=== PATIENT | female | born 1995 | race Caucasian/White ===

== ENCOUNTER 2017-09-28 21:26 | Outpatient (CLI) | payer OTHER | END 2017-09-28 22:45 | disposition home or self-care (01) | LOC: M LDO 21:26 | DX: O36.8130 Decreased fetal movements, third trimester, not applicable or unspecified (principal); Z3A.39 39 weeks gestation of pregnancy | CPT/HCPCS: 59025 ==

== ENCOUNTER 2017-10-01 09:12 | Outpatient (CLI) | payer OTHER | END 2017-10-01 10:20 | disposition home or self-care (01) | LOC: M LDO 09:12 | DX: O47.1 False labor at or after 37 completed weeks of gestation (principal); Z3A.39 39 weeks gestation of pregnancy | CPT/HCPCS: 59025 ==

== ENCOUNTER 2017-10-02 04:35 | Inpatient (IN) | payer OTHER ==
[2017-10-02] MEDS: LACTATED RINGER'S 1000 ML IV (05:38)
[2017-10-02 06:15] LABS: HEMATOCRIT 32.9 % (36.0-47.0); HEMOGLOBIN 11.1 g/dl (12.0-16.0); MEAN CORPUSCULAR HEMOGLOBIN 28.8 pg (27.0-33.0); MEAN CORPUSCULAR HGB CONC 33.7 g/dl (32.0-36.5); MEAN CORPUSCULAR VOLUME 85.2 fl (80.0-96.0); PLATELET COUNT, AUTOMATED 263 10^3/uL (150-450); RED BLOOD COUNT 3.86 10^6/uL (4.00-5.40); RED CELL DISTRIBUTION WIDTH 13.4 % (11.5-14.5); WHITE BLOOD COUNT 19.2 10^3/uL (4.0-10.0)
[2017-10-02] MEDS ORDERED: FENTANYL 2MCG/ML ROPIVACAINE 0.2% IN 0.9% NACL 200ML IVBAG As Ordered (06:51)
[2017-10-02] MEDS: LR 1,000 ML IV (07:10)
[2017-10-02] MEDS ORDERED: ePHEDrine SULFATE 25 MG/5 ML(5MG/ML) SYRINGE IV (08:30)
[2017-10-02] MEDS ORDERED: EPIDURAL COMMENT XX (08:30)
[2017-10-02] MEDS ORDERED: NALOXONE INJ 0.4 MG/1 ML VIAL (J2310) IV (08:30)
[2017-10-02] MEDS ORDERED: ONDANSETRON 4MG/2ML VIAL (J2405) IV ×2 (08:30→12:00)
[2017-10-02] MEDS ORDERED: diphenhydrAMINE INJ 50MG/ML VIAL (J1200) IV (08:30)
[2017-10-02] MEDS ORDERED: LACTATED RINGER'S 1000 ML IV (08:30)
[2017-10-02] MEDS ORDERED: FENTANYL/ROPIVACAINE/NACL BAG 200 ML EPIDURAL (08:30)
[2017-10-02] MEDS ORDERED: REFRIGERATOR IV KEYS XX (08:30)
[2017-10-02] MEDS ORDERED: EPIDURAL/PCA KEYS XX (08:30)
[2017-10-02] MEDS ORDERED: OXYTOCIN DRIP 30 UNITS in APPROPRIATE DILUENT 1 EA IV (09:30)
[2017-10-02] MEDS: OXYTOCIN DRIP 30 UNITS in APPROPRIATE DILUENT 1 EA IV (11:56)
[2017-10-02] MEDS ORDERED: DOCUSATE SODIUM 100 MG CAP PO (12:00)
[2017-10-02] MEDS ORDERED: METHYLERGONOVINE MALEATE 0.2 MG TAB PO (12:00)
[2017-10-02] MEDS ORDERED: DIBUCAINE 1% OINTMENT 30GM TOP (12:00)
[2017-10-02] MEDS ORDERED: METOCLOPRAMIDE INJ 10MG/2ML VIAL (J2765) IV (12:00)
[2017-10-02] MEDS ORDERED: PROMETHAZINE 25 MG TAB PO (12:00)
[2017-10-02] MEDS: PRENATAL VITAMINS CHEWABLE TABLET PO (14:00)
[2017-10-02] MEDS: MEASLES,MUMPS,RUBELLA VACCINE INJ (MMR-II) (90707) SC (15:23)
[2017-10-02] MEDS: IBUPROFEN 600 MG TAB PO (17:38)
[2017-10-02] MEDS: ACETAMINOPHEN TAB 650MG DOSE (2X325MG) PO (22:02)
[2017-10-03] MEDS: PRENATAL VITAMINS CHEWABLE TABLET PO (08:10)
[2017-10-03] MEDS: medroxyPROGESTERone ACET IM SUSP 150 MG/ML VIAL (J1050) IM (21:36)
== END 2017-10-03 22:11 | disposition home or self-care (01) | DRG 775 ==
LOC: M LDO 04:35 → M LDI 05:41 → M OBS 15:14
PROVIDERS: Obstetrics & Gynecology
PROC: 10E0XZZ Delivery of Products of Conception, External Approach (ICD-10-PCS; principal; 2017-10-02)
PROC: 10907ZC Drainage of Amniotic Fluid, Therapeutic from Products of Conception, Via Natural or Artificial Opening (ICD-10-PCS; 2017-10-02)
DX: O80 Encounter for full-term uncomplicated delivery (principal); Z3A.39 39 weeks gestation of pregnancy; Z37.0 Single live birth

== ENCOUNTER → 2018-12-10 | Outpatient (REF) | payer OTHER ==
[~2018-12-10] MED LIST: COLA100C5 PO; IBUP-1022 PO; TYLE325T5 PO
== END ==
LOC: M SFHCLERA 14:33
PROVIDERS: ATTEND Physician Assistant
DX: R50.9 Fever, unspecified (principal)

== ENCOUNTER 2019-08-18 19:18 | Inpatient (IN) | payer OTHER ==
[~2019-08-18] VITALS: Ht 165.1 cm; Wt 74.9 kg
[2019-08-18] MEDS ORDERED: BUTACAP78 PO (19:24)
[2019-08-18] MEDS ORDERED: PHEN-500 PO (19:24)
[2019-08-18] MEDS ORDERED: MACR100C43 PO (19:24)
[2019-08-18 20:15] LABS: BASO % 0.2 % (0.0-1.0); HEMATOCRIT 38.6 % (36.0-47.0); HEMOGLOBIN 12.9 g/dl (12.0-15.5); LYMPH # 0.6 10^3/uL (1.5-5.0); LYMPH % 4.3 % (24.0-44.0); MEAN CORPUSCULAR HEMOGLOBIN 31.2 pg (27.0-33.0); MEAN CORPUSCULAR HGB CONC 33.4 g/dl (32.0-36.5); MEAN CORPUSCULAR VOLUME 93.2 fl (80.0-96.0); MONO # 1.1 10^3/uL (0.0-0.8); MONO % 8.6 % (0.0-5.0); NEUTROPHILS # 11.1 10^3/uL (1.5-8.5); NEUTROPHILS % 86.4 % (36.0-66.0); PLATELET COUNT, AUTOMATED 214 10^3/uL (150-450); RED BLOOD COUNT 4.14 10^6/uL (4.00-5.40); WHITE BLOOD COUNT 12.8 10^3/uL (4.0-10.0)
[2019-08-18] MEDS ORDERED: IBUPROFEN 600 MG TAB PO ONE (20:15)
[2019-08-18] MEDS ORDERED: NS 1,000 ML IV ONE (20:15)
[2019-08-18 20:30] LABS: ALBUMIN 3.6 GM/DL (3.2-5.2); ALT/SGPT 13 U/L (12-78); BILIRUBIN,DIRECT 0.2 MG/DL (0.0-0.2); BILIRUBIN,TOTAL 0.5 MG/DL (0.2-1.0); BLOOD UREA NITROGEN 6 MG/DL (7-18); CALCIUM LEVEL 8.9 MG/DL (8.5-10.1); CARBON DIOXIDE LEVEL 23 MEQ/L (21-32); CHLORIDE LEVEL 104 MEQ/L (98-107); CREATININE FOR GFR 0.77 MG/DL (0.55-1.30); GLOMERULAR FILTRATION RATE > 60.0 (>60); GLUCOSE, FASTING 111 MG/DL (70-100); LIPASE 65 U/L (73-393); POTASSIUM SERUM 3.3 MEQ/L (3.5-5.1); SODIUM LEVEL 136 MEQ/L (136-145); TOTAL PROTEIN 7.2 GM/DL (6.4-8.2)
[2019-08-18 20:34] LABS: HCG, SERUM QUALITATIVE NEGATIVE (NEGATIVE); MONO SCRN NEGATIVE (NEGATIVE)
[2019-08-18] MEDS ORDERED: POTASSIUM CHLORIDE 10 MEQ SR TABLET PO ONE (21:00)
[2019-08-18] MEDS: GASTROGRAFIN SOLUTION 30ML PO SCH ×2 (21:27→22:00)
[2019-08-18 21:32] LABS: APPEARANCE, URINE MANUAL HAZY (CLEAR); COLOR, URINE MANUAL ORANGE (YELLOW); SPECIFIC GRAVITY,URINE MANUAL 1.011 (1.002-1.035)
[2019-08-18 21:33] LABS: BILIRUBIN, URINE MANUAL OBSCURED (NEGATIVE); GLUCOSE, URINE (UA) MANUAL NEGATIVE (NEGATIVE); KETONE, URINE MANUAL 2+ mg/dL (NEGATIVE); NITRITE, URINE MANUAL OBSCURED (NEGATIVE); PROTEIN, URINE MANUAL OBSCURED mg/dL (NEGATIVE); UROBILINOGEN, URINE MANUAL OBSCURED mg/dl (NORMAL)
[2019-08-18 21:34] LABS: BLOOD URINE MANUAL POSITIVE (NEGATIVE); LEUKOCYTE ESTERASE, URINE MAN POSITIVE (NEGATIVE)
[2019-08-18 22:01] LABS: INFLUENZA A AMPLIFICATION NEGATIVE (NEGATIVE); INFLUENZA B AMPLIFICATION NEGATIVE (NEGATIVE)
[2019-08-18 22:47] LABS: WBC, URINE TNTC /hpf (0-3)
[2019-08-18] MEDS ORDERED: ISOVUE-370 76% 100ML VIAL (Q9967) As Ordered ONE (23:06)
[2019-08-18 23:16] LABS: BACTERIA, URINE LARGE AMOUNT; SQUAMOUS EPITHELIAL CELL URINE MOD AMOUNT /hpf (SMALL AMT)
--- NOTE | 2019-08-18 23:48 | REPVR ---
PROCEDURE INFORMATION: Exam: XR Chest, 2 Views Exam date and time: 08/18/2019 9:13 PM Age: 23 years old Clinical indication: Fever TECHNIQUE: Imaging protocol: XR of the chest Views: 2 views. COMPARISON: No relevant prior studies available. FINDINGS: Lungs: There is prominence of the bronchovascular markings and streaky appearance to the markings in the parahilar regions which could be the result of early streaky pneumonic infiltrate. Pleural space: There is no evidence of pneumothorax or pleural effusion. Heart/Mediastinum: The heart is normal in size. Bones/joints: There is no evidence of bony abnormality. IMPRESSION: Streaky appearance to the parahilar markings which could be the result of early streaky infiltrate. Electronically signed by: Lele Lange On 08/18/2019 23:48:08 PM
--- NOTE | 2019-08-18 23:58 | REPVR ---
PROCEDURE INFORMATION: Exam: CT Head Without Contrast Exam date and time: 08/18/2019 8:56 PM Age: 23 years old Clinical indication: Pain; Headache not specified; Additional info: Acute headache TECHNIQUE: Imaging protocol: Computed tomography of the head without contrast. Radiation optimization: All CT scans at this facility use at least one of these dose optimization techniques: automated exposure control; mA and/or kV adjustment per patient size (includes targeted exams where dose is matched to clinical indication); or iterative reconstruction. COMPARISON: No relevant prior studies available. FINDINGS: Brain: There is no evidence of intracranial bleed. Ventricles: Normal ventricles. Bones/joints: There is no evidence of fracture. Sinuses: Clear paranasal sinuses. Mastoid air cells: Clear mastoid air cells. Soft tissues: Unremarkable. IMPRESSION: Normal appearing CT scan of the brain. Electronically signed by: Lele Lange On 08/18/2019 23:58:20 PM
--- NOTE | 2019-08-19 00:21 | REPVR ---
PROCEDURE INFORMATION: Exam: CT Abdomen And Pelvis With Contrast Exam date and time: 08/18/2019 8:55 PM Age: 23 years old Clinical indication: Abdominal pain; Generalized; Additional info: Fever, luq pain TECHNIQUE: Imaging protocol: Computed tomography of the abdomen and pelvis with intravenous contrast. Radiation optimization: All CT scans at this facility use at least one of these dose optimization techniques: automated exposure control; mA and/or kV adjustment per patient size (includes targeted exams where dose is matched to clinical indication); or iterative reconstruction. Contrast material: ISO; Contrast volume: 100 ml; Contrast route: AC; Other contrast: Route: Oral, Material: ggraphin, Volume: 600; COMPARISON: No relevant prior studies available. FINDINGS: Lungs: Clear appearing lung bases. Heart: The heart is normal in size and there is no pericardial effusion. Liver: Normal appearing liver. Gallbladder and bile ducts: Normal common bile duct. Pancreas: Normal pancreas. Spleen: The spleen is top-normal in size. Adrenals: Normal appearing adrenal glands. Kidneys and ureters: There is enhancement of both kidneys. There is a 3 cm x 1 cm area low density and diminished enhancement anterior aspect of the left kidney and additional small patchy areas of low density and decreased enhancement. This probably represents patchy areas of pyelonephritis. Suggest follow-up studies to ensure that this resolves and exclude any possibility of infiltrative neoplasm. There is prominence of the left ureter which could be secondary to inflammation or recent passage of debris. Stomach and bowel: Unremarkable. No obstruction. No mucosal thickening. Appendix: The cecum is in the right pelvis and the appendix appears within the range of normal. Intraperitoneal space: There is no evidence of pneumoperitoneum. There is a small amount of free fluid in the pelvis possibly the result of ovulation. Vasculature: Unremarkable. No abdominal aortic aneurysm. Lymph nodes: There is no evidence of lymphadenopathy. Bladder: Normal appearing urinary bladder. Reproductive: There are follicular cysts of both ovaries. Normal appearing retroverted uterus. Bones/joints: There is no evidence of bony abnormality. Soft tissues: Unremarkable. IMPRESSION: 1. 3 cm x 1 cm area of low density and diminished enhancement anterior aspect of the upper pole of the left kidney. Additional smaller patchy areas of low density and decreased enhancement identified. This is probably the result of focal areas of pyelonephritis. Recommend follow-up studies to see that this resolves and to exclude any possibility of infiltrative neoplasm. 2. Prominence of the left ureter may be secondary to recent passage of debris and ureteritis. 3. Follicular cysts of both ovaries and a small amount of fluid in the pelvis. Electronically signed by: Lele Lange On 08/19/2019 00:20:34 AM
[2019-08-19] MEDS ORDERED: NUVAMIS2 PV (01:14)
[2019-08-19] MEDS ORDERED: MACR100C43 PO (01:14)
[2019-08-19] MEDS ORDERED: IBUP1TAB7 PO (01:14)
[2019-08-19] MEDS ORDERED: FIOR1CAP PO (01:14)
[2019-08-19] MEDS ORDERED: VITA500030 PO (01:14)
[2019-08-19] MEDS ORDERED: NUVAMIS2 VA (01:14)
[2019-08-19] MEDS ORDERED: cefTRIAXone SOD 1 GM in D5W MINI-BAG PLUS 50 ML IV ONE (01:15)
[2019-08-19] MEDS ORDERED: PHEN-593 PO (01:15)
[2019-08-19] MEDS ORDERED: PROAAER10 INH (01:15)
[2019-08-19] MEDS ORDERED: POTASSIUM CHLORIDE 10 MEQ SR TABLET PO ONE (01:30)
--- NOTE | 2019-08-19 01:32 | HPEPDOC ---
General Date of Admission 08/19/19 Date of Service: Aug 19, 2019 Chief Complaint The patient is a 23-year-old female admitted with a reason for visit of Abd Pain. Source: Patient Exam Limitations: No limitations Timing/Duration: Day(s) Severity: Moderate History of Present Illness Patient is 23 years old female without significant past history presented hospital with dysuria, suprapubic pain. Patient stated that 4 days ago she developed suprapubic pain with dysuria, she went [facility], she was d iagnosed with UTI, but was prescribed, however she didn't take Bactrim until yesterday due to insurance issue. Today patient started feeling increased left flank pain and left upper abdominal quadrant pain. The pain was associated with chills and fever up to 102. Also patient complains of nausea, lack of appetite. In emergency room patient was found to have white blood count of 12.[address] abdomen and pelvis was negative for renal abscess Home Medications Scheduled Cholecalciferol (Vitamin D3) (Vitamin D3) 125 Mcg Tablet, 125 MCG PO DAILY, (Reported) Etonogestrel/Ethinyl Estradiol (Nuvaring Vaginal Ring) 1 Each Vag.ring, 1 VAG RING VA Q30D, (Reported) 3 WEEKS ON, 1 WEEK OFF: NEXT DOSE DUE 08/22/19 Nitrofurantoin Monohyd/M-Cryst (Macrobid 100 mg Capsule) 100 Mg Capsule, 100 MG PO BID, (Reported) Phenazopyridine HCl (Phenazopyridine HCl) 100 Mg Tablet, 200 MG PO Q8H, (Reported) Scheduled PRN Albuterol Sulfate (Proair Hfa) 8.5 Gm Hfa.aer.ad, 2 PUFF INH QID PRN for SHORTNESS OF BREATH, (Reported) Butalb/Acetaminophen/Caffeine (Fioricet 50-300-40 mg Capsule) 1 Each Capsule, 1 CAP PO Q4H PRN for HEADACHE, (Reported) Ibuprofen (Ibuprofen) 800 Mg Tablet, 800 MG PO Q8H PRN for PAIN, (Reported) Allergies Coded Allergies: No Known Allergies (Unverified , 08/18/19) Past Medical History Medical History No significant past medical history Family History I personally reviewed family history and found not pertinent Social History * Smoker: Denies Alcohol: Denies Drugs: denies A-FIB/CHADSVASC A-FIB History Current/History of A-Fib/PAF?: No Current PO Anticoag Therapy: No Review of Systems Constitutional: Reports: Chills, Fever Eyes: Denies: Pain, Vision change ENT: Denies: Head Aches Skin: Denies: Rash Pulmonary: Denies: Dyspnea Cardiovascular: Denies: Chest Pain Gastrointestinal: Reports: Nausea Genitourinary: Reports: Dysuria, Frequency Hematologic: Denies: Bruising, Bleeding Excessively Endocrine: Denies: Polydipsia, Polyphagia Musculoskeletal: Denies: Neck Pain Neurological: Denies: Weakness, Numbness Psych: Reports: Mood Normal Physical Examination General Exam: Positive: Alert, Cooperative Eye Exam: Positive: PERRLA, Conjunctiva & lids normal ENT Exam: Positive: Atraumatic Neck Exam: Positive: Supple; Negative: JVD Chest Exam: Positive: Clear to auscultation Heart Exam: Positive: Rate Normal Telemetry: Positive: No significant arrhythmia Abdomen Exam: Positive: Normal bowel sounds Extremity Exam: Negative: Clubbing, Cyanosis Skin Exam: Positive: Nl turgor and temperature Neuro Exam: Positive: Strength at 5/5 X4 ext, Cranial Nerves 3-12 NL Psych Exam: Positive: Mental status NL Vital Signs Vital Signs Date Time Temp Pulse Resp B/P (MAP) Pulse Ox O2 Delivery O2 Flow Rate FiO2 08/19/19 00:26 99.1 100 18 121/69 (86) 96 Room Air Laboratory Data Labs 24H Laboratory Tests 2 08/18/19 19:51: Immature Granulocyte % (Auto) 0.5, Neutrophils (%) (Auto) 86.4H, Lymphocytes (%) (Auto) 4.3L, Monocytes (%) (Auto) 8.6H, Eosinophils (%) (Auto) 0.0, Basophils (%) (Auto) 0.2, Neutrophils # (Auto) 11.1H, Lymphocytes # (Auto) 0.6L, Monocytes # (Auto) 1.1H, Eosinophils # (Auto) 0.0, Basophils # (Auto) 0.0, Nucleated Red Blood Cells % (auto) 0.0, Anion Gap 9, Glomerular Filtration Rate > 60.0, Lactic Acid Level 1.2, Calcium Level 8.9, Total Bilirubin 0.5, Direct Bilirubin 0.2, Aspartate Amino Transf (AST/SGOT) 6L, Alanine Aminotransferase (ALT/SGPT) 13, Alkaline Phosphatase 66, Total Protein 7.2, Albumin 3.6, Albumin/Globulin Ratio 1.00, Lipase 65L, Human Chorionic Gonadotropin, Qual NEGATIVE, Monoscreen NEGATIVE 08/18/19 20:56: Bedside Urine Color (LAB) ORANGEH, Bedside Urine Appearance (LAB) HAZYH, Bedside Urine pH (LAB) 6.0, Bedside Urine Specific [place] (LAB 1.011, Bedside Urine Protein (LAB) OBSCUREDH, Bedside Urine Glucose (UA) NEGATIVE, Bedside Urine Ketones (LAB) 2+H, Bedside Urine Blood POSITIVEH, Bedside Urine Nitrite (LAB) OBSCUREDH, Bedside Urine Bilirubin (LAB) OBSCUREDH, Bedside Urine Urobilinogen (LAB) OBSCUREDH, Bedside Urine Leukocyte Esterase (L POSITIVEH, Urine Sediment Examination PERFORMED, Urine RBC 3-5H, Urine WBC TNTCH, Urine Squamous Epithelial Cells MOD AMOUNTH, Urine Bacteria LARGE AMOUNTH, Urine Hyaline Casts 08/18/19 20:57: Influenza Type A (RT-PCR) NEGATIVE, Influenza Type B (RT-PCR) NEGATIVE CBC/BMP Laboratory Tests 08/18/19 19:51 Microbiology Microbiology 08/18/19 Blood Culture, Received Pending 08/18/19 Urine Culture, Received Pending 08/18/19 Blood Culture, Received Pending Assessment/Plan Patient is 23 years old female without significant past history presented hospital with dysuria, suprapubic pain. Patient stated that 4 days ago she developed suprapubic pain with dysuria, she went [facility], she was diagnosed with UTI, but was prescribed, however she didn't take Bactrim until yesterday due to insurance issue. Today patient started feeling increased left flank pain and left upper abdominal quadrant pain. The pain was associated with chills and fever up to 102. Also patient complains of nausea, lack of appetite. In emergency room patient was found to have white blood count of 12.[address] abdomen and pelvis was negative for renal abscess Problems (1) Sepsis Status: Acute Problem Text: Secondary to acute pyelonephritis Patient has increased leukocytosis and fever Blood culture I started antibiotic ceftriaxone IV IV fluid Urine culture (2) Pyelonephritis Status: Acute Problem Text: Most likely secondary to recurrent UTI Ceftriaxone IV IV fluid Await urine culture Plan / VTE VTE Prophylaxis Ordered?: Yes GREGG BARNEY DO Aug 19, 2019 01:32
[2019-08-19] MEDS: KETOROLAC 30 MG/ML VIAL (J1885) IV PRN ×4 (01:45→20:17)
[2019-08-19 03:15] VITALS: BP 123/59
[2019-08-19] MEDS: NS 1,000 ML IV SCH ×3 (03:34→18:02)
[2019-08-19 06:00] VITALS: BP 99/55
[2019-08-19] MEDS: HEPARIN SOD (PORCINE) 5000 UNITS/ML VIAL (J1644 PER 1000UNITS) SC SCH ×2 (08:04→21:57)
[2019-08-19] MEDS: ONDANSETRON 4MG/2ML VIAL (J2405) IV PRN ×2 (09:03→18:38)
[2019-08-19 14:00] VITALS: BP 118/56
[2019-08-19] MEDS: cefTRIAXone SOD 1 GM in D5W MINI-BAG PLUS 50 ML IV SCH (14:11)
--- NOTE | 2019-08-19 17:37 | IPNPDOC ---
Text Note Date of Service The patient was seen on 08/19/19. NOTE Subjective: -Doing ok this morning, still has flank pain, but is now better controlled by the medication Objective: General Exam: Alert, Cooperative Eye Exam: PERRLA, Conjunctiva & lids normal ENT Exam: Atraumatic Neck Exam: Supple, no JVD Chest Exam: Clear to auscultation Heart Exam: RRR, no mrg Abdomen Exam: Normal bowel sounds, NTND Extremity Exam: WWP, no edema Skin Exam: Nl turgor and temperature, no rashes Neuro Exam: Strength at 5/5 X4 ext, Cranial Nerves 3-12 NL, grossly normal examination Psych Exam: AOx3 Labs: Reviewed. K was 3.3, repleted by night team Assessment Patient is 23 years old admitted for sepsis 2/2 acute pyelonephritis. Problems Sepsis 2/2 acute pyelonephritis -continue ceftriaxone IV -continue IV fluids -f/u Urine culture -Toradol PRN for pain control, 30mg Q6H PRN -Zofran PRN for nausea DVT: heparin subcutaneously VS,Fishbone, I+O VS, Fishbone, I+O Laboratory Tests 08/18/19 19:51 Vital Signs Date Time Temp Pulse Resp B/P (MAP) Pulse Ox O2 Delivery O2 Flow Rate FiO2 08/19/19 14:00 99.3 104 20 118/56 (76) 96 Room Air 08/19/19 06:00 98.0 I&O- Last 24 Hours up to 6 AM 08/19/19 06:00 Intake Total 1350 ml Balance 1350 ml YANG COX MD Aug 19, 2019 17:37
--- NOTE | 2019-08-19 20:04 | ECGEPIP ---
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
[2019-08-19 21:30] VITALS: BP 130/76
[2019-08-19] MEDS: PHENAZOPYRIDINE 100 MG TAB PO PRN (23:17)
[2019-08-20] MEDS: cefTRIAXone SOD 1 GM in D5W MINI-BAG PLUS 50 ML IV SCH (02:15)
[2019-08-20] MEDS: KETOROLAC 30 MG/ML VIAL (J1885) IV PRN ×3 (02:52→18:37)
[2019-08-20] MEDS: NS 1,000 ML IV SCH (05:26)
[2019-08-20 06:23] VITALS: BP 110/61
[2019-08-20] MEDS: ONDANSETRON 4MG/2ML VIAL (J2405) IV PRN ×3 (07:03→18:45)
[2019-08-20 07:07] LABS: HEMATOCRIT 29.9 % (36.0-47.0); MEAN CORPUSCULAR HEMOGLOBIN 31.9 pg (27.0-33.0); MEAN CORPUSCULAR HGB CONC 34.4 g/dl (32.0-36.5); MEAN CORPUSCULAR VOLUME 92.6 fl (80.0-96.0); PLATELET COUNT, AUTOMATED 205 10^3/uL (150-450); RED BLOOD COUNT 3.23 10^6/uL (4.00-5.40); WHITE BLOOD COUNT 9.4 10^3/uL (4.0-10.0)
[2019-08-20 07:21] LABS: HEMOGLOBIN 10.3 g/dl (12.0-15.5)
[2019-08-20 07:28] LABS: BLOOD UREA NITROGEN 5 MG/DL (7-18); CALCIUM LEVEL 8.3 MG/DL (8.5-10.1); CARBON DIOXIDE LEVEL 24 MEQ/L (21-32); CHLORIDE LEVEL 110 MEQ/L (98-107); CREATININE FOR GFR 0.65 MG/DL (0.55-1.30); GLOMERULAR FILTRATION RATE > 60.0 (>60); GLUCOSE, FASTING 100 MG/DL (70-100); MAGNESIUM LEVEL 1.8 MG/DL (1.8-2.4); POTASSIUM SERUM 3.2 MEQ/L (3.5-5.1); SODIUM LEVEL 141 MEQ/L (136-145)
[2019-08-20] MEDS ORDERED: POTASSIUM CHLORIDE 10 MEQ SR TABLET PO ONE (08:00)
[2019-08-20 08:20] VITALS: BP 119/79
--- NOTE | 2019-08-20 08:50 | IPN ---
DATE: 08/20/2019 Heaven is seen on [address] while rounding for the hospitalist. She has a history of recurrent urinary tract infections since the Fall. She has been treated with a number of antibiotics. I do not have access to her culture reports, but she says that she was switched from Bactrim to nitrofurantoin based upon a culture result. She has grown out ESBL E-coli and so her antibiotic is being changed. She presented with left pyelonephritis. She has not had any workup for the recurrent urinary tract infections with any imaging studies until this hospitalization. She denies nausea or vomiting. She still has flank pain and headache, but it has gotten better. PHYSICAL EXAMINATION: 99.3, T-max 100.4. General Appearance: Alert, conversant, in no distress. Lungs: Clear. Heart: Regular rhythm. Abdomen: Soft. Tender in left upper quadrant. Left CVA tenderness still present. No peripheral edema. LABS: Electrolytes unremarkable. Potassium 3.2. Renal function is normal. White count is down to 9.4. Hemoglobin 10.3. Platelets 205. IMPRESSION: 1. Left pyelonephritis secondary to ESBL E- Coli. Will stop the Rocephin and change to ertapenem 1 gram IV daily. IV fluids have been changed to 1/2 normal saline with supplemental potassium. Impressed upon the patient that going forward it is important that she have urin cultures done when she is being assessed for urinary tract infections; her care is often through urgent care who often do not culture urine results, with her history of ESBL she needs culturing done. 2. Abnormal left kidney. Probably from pyelonephritis. Followup studies as outpatient are advised.
[2019-08-20] MEDS: HEPARIN SOD (PORCINE) 5000 UNITS/ML VIAL (J1644 PER 1000UNITS) SC SCH ×2 (09:22→21:27)
[2019-08-20] MEDS: ERTAPENEM SODIUM 1 GM in NS MINI-BAG PLUS 50 ML IV SCH (10:32)
[2019-08-20] MEDS: KCL 20MEQ IN 0.45NS 1000ML 1,000 ML IV SCH ×2 (10:33→18:37)
[2019-08-20 11:45] VITALS: BP 123/82
[2019-08-20 14:00] VITALS: BP 134/74
[2019-08-20] MEDS: ACETAMINOPHEN TAB 650MG DOSE (2X325MG) PO PRN ×2 (15:35→21:27)
[2019-08-20 22:00] VITALS: BP 126/85
[2019-08-21] MEDS: KETOROLAC 30 MG/ML VIAL (J1885) IV PRN ×3 (01:22→18:37)
[2019-08-21] MEDS: KCL 20MEQ IN 0.45NS 1000ML 1,000 ML IV SCH (04:57)
[2019-08-21 05:54] VITALS: BP 124/85
[2019-08-21] MEDS: ONDANSETRON 4MG/2ML VIAL (J2405) IV PRN ×3 (05:56→18:37)
[2019-08-21] MEDS: ACETAMINOPHEN TAB 650MG DOSE (2X325MG) PO PRN ×2 (05:57→16:42)
[2019-08-21 07:24] LABS: HEMATOCRIT 31.1 % (36.0-47.0); HEMOGLOBIN 10.6 g/dl (12.0-15.5); MEAN CORPUSCULAR HEMOGLOBIN 31.8 pg (27.0-33.0); MEAN CORPUSCULAR HGB CONC 34.1 g/dl (32.0-36.5); MEAN CORPUSCULAR VOLUME 93.4 fl (80.0-96.0); PLATELET COUNT, AUTOMATED 215 10^3/uL (150-450); RED BLOOD COUNT 3.33 10^6/uL (4.00-5.40); WHITE BLOOD COUNT 7.1 10^3/uL (4.0-10.0)
[2019-08-21 07:49] LABS: BLOOD UREA NITROGEN 5 MG/DL (7-18); CARBON DIOXIDE LEVEL 27 MEQ/L (21-32); CHLORIDE LEVEL 111 MEQ/L (98-107); CREATININE FOR GFR 0.68 MG/DL (0.55-1.30); GLOMERULAR FILTRATION RATE > 60.0 (>60); GLUCOSE, FASTING 97 MG/DL (70-100); POTASSIUM SERUM 3.7 MEQ/L (3.5-5.1); SODIUM LEVEL 142 MEQ/L (136-145)
[2019-08-21] MEDS: HEPARIN SOD (PORCINE) 5000 UNITS/ML VIAL (J1644 PER 1000UNITS) SC SCH ×2 (09:16→19:54)
[2019-08-21] MEDS: ERTAPENEM SODIUM 1 GM in NS MINI-BAG PLUS 50 ML IV SCH (09:16)
--- NOTE | 2019-08-21 12:45 | IPN ---
DATE: 08/21/2009 Heaven is on her second day of Invanz for ESBL E-coli urinary tract infection. She has recurrent UTIs. Her flank pain is largely improved today and her abdominal pain is slightly improved as well. She is afebrile. Vital signs are stable. Lungs clear. Heart regular rhythm. Abdomen soft. Tender in the left upper quadrant. Left CVA tenderness persists. LABS: Electrolytes unremarkable. Potassium is up to 3.7. White count now normal at 7.1. IMPRESSION: 1. ESBL left pyelonephritis. Continue her Invanz 1 gram IV daily. Would recommend continuing this for at least another day or two. She can probably be discharged on fosfomycin. 2. Hypokalemia. This is resolved. Will stop her IV fluids after her current liter is infused.
[2019-08-21 22:00] VITALS: BP 131/79
[2019-08-22] MEDS: ACETAMINOPHEN TAB 650MG DOSE (2X325MG) PO PRN ×2 (02:20→10:50)
[2019-08-22] MEDS: ONDANSETRON 4MG/2ML VIAL (J2405) IV PRN ×3 (03:03→19:48)
[2019-08-22] MEDS: KETOROLAC 30 MG/ML VIAL (J1885) IV PRN (03:03)
[2019-08-22 04:00] VITALS: BP 137/86
[2019-08-22 06:00] VITALS: BP 137/86
[2019-08-22] MEDS: PHENAZOPYRIDINE 100 MG TAB PO PRN ×2 (06:42→19:48)
[2019-08-22 07:07] LABS: HEMATOCRIT 31.9 % (36.0-47.0); HEMOGLOBIN 10.7 g/dl (12.0-15.5); MEAN CORPUSCULAR HGB CONC 33.5 g/dl (32.0-36.5); MEAN CORPUSCULAR VOLUME 92.5 fl (80.0-96.0); PLATELET COUNT, AUTOMATED 245 10^3/uL (150-450); RED BLOOD COUNT 3.45 10^6/uL (4.00-5.40); WHITE BLOOD COUNT 6.8 10^3/uL (4.0-10.0)
[2019-08-22 07:38] LABS: BLOOD UREA NITROGEN 5 MG/DL (7-18); CALCIUM LEVEL 8.2 MG/DL (8.5-10.1); CARBON DIOXIDE LEVEL 27 MEQ/L (21-32); CHLORIDE LEVEL 109 MEQ/L (98-107); GLOMERULAR FILTRATION RATE > 60.0 (>60); GLUCOSE, FASTING 90 MG/DL (70-100); POTASSIUM SERUM 3.5 MEQ/L (3.5-5.1); SODIUM LEVEL 141 MEQ/L (136-145)
[2019-08-22] MEDS: ERTAPENEM SODIUM 1 GM in NS MINI-BAG PLUS 50 ML IV SCH (08:08)
[2019-08-22] MEDS: HEPARIN SOD (PORCINE) 5000 UNITS/ML VIAL (J1644 PER 1000UNITS) SC SCH ×2 (08:08→19:48)
[2019-08-22] MEDS ORDERED: POTASSIUM CHLORIDE 10 MEQ SR TABLET PO ONE (09:00)
[2019-08-22 14:00] VITALS: BP 140/86
--- NOTE | 2019-08-22 14:41 | IPNPDOC ---
Text Note Date of Service The patient was seen on 08/22/19. NOTE Subjective: -Doing ok this morning, still has flank pain and nausea Objective: General Exam: Alert, Cooperative Eye Exam: PERRLA, Conjunctiva & lids normal ENT Exam: Atraumatic Neck Exam: Supple, no JVD Chest Exam: Clear to auscultation Heart Exam: RRR, no mrg Abdomen Exam: Normal bowel sounds, NTND Extremity Exam: WWP, no edema Skin Exam: Nl turgor and temperature, no rashes Neuro Exam: Strength at 5/5 X4 ext, Cranial Nerves 3-12 NL, grossly normal examination Psych Exam: AOx3 Labs: Reviewed. K was 3.5 Assessment Patient is 23 years old admitted for sepsis 2/2 acute pyelonephritis 2/2 ESBL E.Coli doing relatively well on ertapenem. Problems Sepsis 2/2 acute pyelonephritis -continue ertapenem with plan to switch to fosfomycin on Saturday for discharge -Toradol PRN for pain control, 30mg Q6H PRN -Zofran and promethazine PRN for nausea DVT: heparin subcutaneously VS,Fishbone, I+O VS, Fishbone, I+O Laboratory Tests 08/22/19 06:54 Vital Signs Date Time Temp Pulse Resp B/P (MAP) Pulse Ox O2 Delivery O2 Flow Rate FiO2 08/22/19 06:00 99.6 60 18 137/86 (103) 98 Room Air 08/19/19 06:00 98.0 I&O- Last 24 Hours up to 6 AM 08/22/19 06:00 Intake Total 2170 ml Output Total 1400 ml Balance 770 ml YANG COX MD Aug 22, 2019 14:41
[2019-08-22] MEDS ORDERED: PROMETHAZINE INJ 25 MG/ML VIAL (J2550) IV PRN (14:45)
[2019-08-22] MEDS ORDERED: NUVARING PV ONE (16:30)
[2019-08-22 22:00] VITALS: BP 128/82
[2019-08-23] MEDS: KETOROLAC 30 MG/ML VIAL (J1885) IV PRN (04:34)
[2019-08-23 06:00] VITALS: BP 136/76
[2019-08-23 07:11] LABS: HEMATOCRIT 31.4 % (36.0-47.0); HEMOGLOBIN 10.8 g/dl (12.0-15.5); MEAN CORPUSCULAR HEMOGLOBIN 31.3 pg (27.0-33.0); MEAN CORPUSCULAR HGB CONC 34.4 g/dl (32.0-36.5); PLATELET COUNT, AUTOMATED 302 10^3/uL (150-450); RED BLOOD COUNT 3.45 10^6/uL (4.00-5.40); WHITE BLOOD COUNT 7.6 10^3/uL (4.0-10.0)
[2019-08-23 07:43] LABS: BLOOD UREA NITROGEN 6 MG/DL (7-18); CALCIUM LEVEL 8.8 MG/DL (8.5-10.1); CARBON DIOXIDE LEVEL 29 MEQ/L (21-32); CHLORIDE LEVEL 107 MEQ/L (98-107); CREATININE FOR GFR 0.67 MG/DL (0.55-1.30); GLOMERULAR FILTRATION RATE > 60.0 (>60); GLUCOSE, FASTING 90 MG/DL (70-100); POTASSIUM SERUM 3.6 MEQ/L (3.5-5.1); SODIUM LEVEL 140 MEQ/L (136-145)
[2019-08-23] MEDS: HEPARIN SOD (PORCINE) 5000 UNITS/ML VIAL (J1644 PER 1000UNITS) SC SCH ×2 (08:00→20:30)
[2019-08-23] MEDS: ERTAPENEM SODIUM 1 GM in NS MINI-BAG PLUS 50 ML IV SCH (08:00)
[2019-08-23] MEDS ORDERED: POTASSIUM CHLORIDE 10 MEQ SR TABLET PO ONE (09:00)
[2019-08-23] MEDS: ACETAMINOPHEN TAB 650MG DOSE (2X325MG) PO PRN ×2 (12:02→18:29)
[2019-08-23] MEDS: PHENAZOPYRIDINE 100 MG TAB PO PRN ×2 (12:02→20:30)
--- NOTE | 2019-08-23 12:31 | IPNPDOC ---
Text Note Date of Service The patient was seen on 08/23/19. NOTE Subjective: -Doing ok this morning, no complaints Objective: General Exam: Alert, Cooperative Eye Exam: PERRLA, Conjunctiva & lids normal ENT Exam: Atraumatic Neck Exam: Supple, no JVD Chest Exam: Clear to auscultation Heart Exam: RRR, no mrg Abdomen Exam: Normal bowel sounds, NTND Extremity Exam: WWP, no edema Skin Exam: Nl turgor and temperature, no rashes Neuro Exam: Strength at 5/5 X4 ext, Cranial Nerves 3-12 NL, grossly normal examination Psych Exam: AOx3 Labs: Reviewed. K was 3.6. Otherwise normal CBC and BMP Assessment Patient is 23 years old admitted for sepsis 2/2 acute pyelonephritis 2/2 ESBL E.Coli doing relatively well on ertapenem. Problems Sepsis 2/2 acute pyelonephritis -continue ertapenem with plan to switch to fosfomycin on Saturday for discharge -Toradol PRN for pain control, 30mg Q6H PRN -Zofran and promethazine PRN for nausea Anemia: stable -check iron studies with AM labs, starting with Fe, ferritin and TIBC DVT: heparin subcutaneously VS,Fishbone, I+O VS, Fishbone, I+O Laboratory Tests 08/23/19 06:32 Vital Signs Date Time Temp Pulse Resp B/P (MAP) Pulse Ox O2 Delivery O2 Flow Rate FiO2 08/23/19 06:00 98.2 59 16 136/76 (96) 95 Room Air 08/19/19 06:00 98.0 I&O- Last 24 Hours up to 6 AM 08/23/19 06:00 Intake Total 2990 ml Output Total 4300 ml Balance -1310 ml YANG COX MD Aug 23, 2019 08:34
[2019-08-23 14:00] VITALS: BP 131/64
[2019-08-23 22:00] VITALS: BP 141/74
[2019-08-24] MEDS: ACETAMINOPHEN TAB 650MG DOSE (2X325MG) PO PRN ×2 (04:05→12:03)
[2019-08-24 06:00] VITALS: BP 135/83
[2019-08-24 07:07] LABS: HEMATOCRIT 34.2 % (36.0-47.0); HEMOGLOBIN 11.8 g/dl (12.0-15.5); MEAN CORPUSCULAR HGB CONC 34.5 g/dl (32.0-36.5); MEAN CORPUSCULAR VOLUME 89.8 fl (80.0-96.0); PLATELET COUNT, AUTOMATED 369 10^3/uL (150-450); RED BLOOD COUNT 3.81 10^6/uL (4.00-5.40); WHITE BLOOD COUNT 7.9 10^3/uL (4.0-10.0)
[2019-08-24 07:38] LABS: BLOOD UREA NITROGEN 7 MG/DL (7-18); CALCIUM LEVEL 8.7 MG/DL (8.5-10.1); CARBON DIOXIDE LEVEL 27 MEQ/L (21-32); CHLORIDE LEVEL 107 MEQ/L (98-107); CREATININE FOR GFR 0.65 MG/DL (0.55-1.30); FERRITIN 112 NG/ML (8-252); GLOMERULAR FILTRATION RATE > 60.0 (>60); GLUCOSE, FASTING 86 MG/DL (70-100); IRON (FE) 77 UG/DL (50-170); PERCENT SATURATION 26.5 % (13.2-45.0); POTASSIUM SERUM 3.8 MEQ/L (3.5-5.1); SODIUM LEVEL 137 MEQ/L (136-145); TOTAL IRON BINDING CAPACITY 291 UG/DL (250-450)
[2019-08-24] MEDS: ERTAPENEM SODIUM 1 GM in NS MINI-BAG PLUS 50 ML IV SCH (08:02)
[2019-08-24] MEDS: ONDANSETRON 4MG/2ML VIAL (J2405) IV PRN (08:02)
[2019-08-24] MEDS: HEPARIN SOD (PORCINE) 5000 UNITS/ML VIAL (J1644 PER 1000UNITS) SC SCH (08:02)
[2019-08-24] MEDS: PHENAZOPYRIDINE 100 MG TAB PO PRN (08:03)
[2019-08-24] MEDS ORDERED: ONDA4TAB6 PO (11:19)
[2019-08-24] MEDS ORDERED: ACET1TAB55 PO (11:19)
[2019-08-24] MEDS ORDERED: MONU5.636 PO (11:19)
--- NOTE | 2019-08-24 14:13 | DS.PDOC ---
Discharge Summary General Date of Admission Aug 19, 2019 at 01:22 Date of Discharge 08/24/2019 Attending Physician: YANG COX MD Discharge Summary PROCEDURES PERFORMED DURING STAY: None ADMITTING DIAGNOSES: 1. Sepsis secondary to ESBL pylonephritis DISCHARGE DIAGNOSES: 1. Sepsis secondary to ESBL pylonephritis 2. 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 HISTORY OF PRESENT ILLNESS: 23 year old W with a history of anemia 2/2 menometrorrhagia who presented to the ED with dysuria, suprapubic pain and acute bilateral flank pain, in the setting of 4 days of suprapubic pain with dysuria for which she had presented to [facility] and diagnosed with a UTI and had been prescribed Bactrim but had not started treatment due to an insurance issue. On the day of presentation, she had increased left flank pain and left upper abdominal quadrant pain with associated chills and fever up to 102 with associated nausea and poor PO. HOSPITAL COURSE: In the ED, she was febrile and tachycardic but otherwise normotensive and breathing comfortably on room air. She was found to have a mild leukocytosis, pyuria on UA and CT abdomen and pelvis was negative for renal abscess. She was started on ceftriaxone while blood and urine cultures were sent. Her course was c/b fevers and on day 3 of admission urine culture grew out quinolone resistance ESBL and she was switched to ertapenem with resolution of fevers. Her nausea and back pain also eventually improved. She is now being discharged home after 5d of ertapenem with plan for 3 doses of Q48H fosfomycin to complete her ESBL pyelonephritis course. DISCHARGE MEDICATIONS: Please see below. ALLERGIES: Please see below. PHYSICAL EXAMINATION ON DISCHARGE: VITAL SIGNS: Please see below. General Exam: Alert, Cooperative Eye Exam: PERRLA, Conjunctiva & lids normal ENT Exam: Atraumatic Neck Exam: Supple, no JVD Chest Exam: Clear to auscultation Heart Exam: RRR, no mrg Abdomen Exam: Normal bowel sounds, NTND Extremity Exam: WWP, no edema Skin Exam: Nl turgor and temperature, no rashes Neuro Exam: Strength at 5/5 X4 ext, Cranial Nerves 3-12 NL, grossly normal examination Psych Exam: AOx3 LABORATORY DATA: Please see below. IMAGING: CT A/P: 1. 3 cm x 1 cm area of low density and diminished enhancement anterior aspect of the upper pole of the left kidney. Additional smaller patchy areas of low density and decreased enhancement identified. This is probably the result of focal areas of pyelonephritis. Recommend follow-up studies to see that this resolves and to exclude any possibility of infiltrative neoplasm. 2. Prominence of the left ureter may be secondary to recent passage of debris and ureteritis. 3. Follicular cysts of both ovaries and a small amount of fluid in the pelvis. noncon head CT: Normal appearing CT scan of the brain. CXR: Streaky appearance to the parahilar markings which could be the result of early streaky infiltrate. PROGNOSIS: Good ACTIVITY: As tolerated. DIET: Regular DISCHARGE PLAN: Home with Q2D fosfomycin for 6 doses DISPOSITION: Home DISCHARGE INSTRUCTIONS: 1. Please take the fosfomycin to completion. Please see your PCP within 7 days of discharge ITEMS TO FOLLOWUP ON ON OUTPATIENT: 1. Pyelonephritis resolution DISCHARGE CONDITION: Stable. TIME SPENT ON DISCHARGE: 57 minutes. Vital Signs/I&Os Vital Signs Date Time Temp Pulse Resp B/P (MAP) Pulse Ox O2 Delivery O2 Flow Rate FiO2 08/24/19 06:00 99.1 61 16 135/83 (100) 98 Room Air 08/19/19 06:00 98.0 I&O- Last 24 Hours up to 6 AM 08/24/19 06:00 Intake Total 2980 ml Output Total 4800 ml Balance -1820 ml Laboratory Data Labs 24H Laboratory Tests 2 08/24/19 06:21: Nucleated Red Blood Cells % (auto) 0.0, Anion Gap 3L, Glomerular Filtration Rate > 60.0, Calcium Level 8.7, Iron Level 77, Total Iron Binding Capacity 291, Transferrin % Saturation 26.5, Ferritin 112 CBC/BMP Laboratory Tests 08/24/19 06:21 Microbiology Microbiology 08/18/19 Blood Culture - Final, Complete NO GROWTH AFTER 5 DAYS 08/18/19 Urine Culture - Final, Complete E.coli Esbl 08/18/19 Blood Culture - Final, Complete NO GROWTH AFTER 5 DAYS Discharge Medications Scheduled Cholecalciferol (Vitamin D3) (Vitamin D3) 125 Mcg Tablet, 125 MCG PO DAILY, (Reported) Etonogestrel/Ethinyl Estradiol (Nuvaring Vaginal Ring) 1 Each Vag.ring, 1 VAG RING VA Q30D, (Reported) 3 WEEKS ON, 1 WEEK OFF: NEXT DOSE DUE 08/22/19 Fosfomycin Tromethamine (Monurol) 3 Gm Packet, 3 GM PO Q48H Phenazopyridine HCl (Phenazopyridine HCl) 100 Mg Tablet, 200 MG PO Q8H, (Reported) Scheduled PRN Acetaminophen (Acetaminophen) 325 Mg Tablet, 650 MG PO Q6HP PRN for PAIN / FEVER Albuterol Sulfate (Proair Hfa) 8.5 Gm Hfa.aer.ad, 2 PUFF INH QID PRN for SHORTN ESS OF BREATH, (Reported) Butalb/Acetaminophen/Caffeine (Fioricet 50-300-40 mg Capsule) 1 Each Capsule, 1 CAP PO Q4H PRN for HEADACHE, (Reported) Ibuprofen (Ibuprofen) 800 Mg Tablet, 800 MG PO Q8H PRN for PAIN, (Reported) Ondansetron (Ondansetron Odt) 4 Mg Tab.rapdis, 4 MG PO Q12HP PRN for nausea/vomiting Allergies Coded Allergies: No Known Allergies (Unverified , 08/18/19) YANG COX MD Aug 24, 2019 14:13
== END 2019-08-24 12:30 | disposition home or self-care (01) | DRG 872 ==
LOC: M ED 19:18 → M ED INP 08-19 01:22 → EEVIPCON 08-19 01:22 → ENRESERV 08-19 02:06 → M MS5PR 08-19 03:09
PROVIDERS: ADMIT Internal Medicine; ATTEND Internal Medicine
DX: A41.9 Sepsis, unspecified organism (principal); N10 Acute pyelonephritis; Z79.899 Other long term (current) drug therapy; E87.6 Hypokalemia; D64.9 Anemia, unspecified